=== PATIENT | female | born 1950 | race Caucasian/White ===

== ENCOUNTER 2021-12-07 12:50 | Outpatient (CLI) | payer MEDICARE, SELFPAY ==
--- NOTE | 2021-12-07 13:00 | CRLHL7_ITS ---
For Patients: As a result of the Century Cures Act, medical imaging exams and procedure reports are released immediately into your electronic medical record. You may view this report before your referring provider. If you have questions, please contact your health care provider. DXA BONE MINERAL DENSITY STUDY, 12/07/2021 Reason for exam: Screening. Current height (inches): 61.5 Weight (lbs.): 121.0 Menopause age: 52 Ethnicity: White 1. Have you had a previous hip or vertebral fracture? No. 2. Have you had any fractures during your adult life which did not result from significant trauma (e.g., auto accident)? No. 3. Did either of your parents have a hip fracture? No. 4. Do you smoke? No. 5. Have you ever taken Glucocorticoids? No. 6. Do you have rheumatoid arthritis? No. 7. Do you have secondary osteoporosis? No. 8. Do you drink 3 or more alcoholic drinks per day? No. 9. Are you being treated for osteoporosis? No. 10. Have you ever taken any of the following medications: Actonel, Evista, Fosamax, Miacalcin, Reclast, Boniva, Forteo, HRT (i.e., estrogen/hormone therapy), Protelos, Prolia, Vitamin D, Calcium, other ??? please specify. ANSWER: Yes; Vitamin D and calcium. 11. Do you have any of the following medical conditions: Anorexia or bulimia, asthma or emphysema, end stage renal disease, hyperparathyroidism, any seizure disorders, cancer, inflammatory bowel diseases, hysterectomy, other ??? please specify. ANSWER: No. 12. What was your maximum height (inches)? 62. 13. Do you perform weight bearing exercise regularly? Yes. 14. Do you regularly consume dairy products? Yes. 15. Do you drink caffeinated beverages? Yes. 16. At what age did your period start? 14. 17. Are you premenopausal? No. 18. How many full-term pregnancies have you had? 4. 19. Have you ever missed your period for more than 6 months in a row (not including or menopause)? No. TECHNIQUE: Bone mineral density study was performed using the T-VIPS. FINDINGS: The results of the study expressed as bone mineral density (BMD) are as follows: Lumbar Spine L1 to L3: BMD: 0.910 g/cm2. T-score: -1.0. Z-score: 1.1. Neck Left: BMD: 0.795 g/cm2. T-score: -0.5. Z-score: 1.3. Right: BMD: 0.887 g/cm2. T-score: 0.3. Z-score: 2.1. Total Left: BMD: 1.026 g/cm2. T-score: 0.7. Z-score: 2.2. Right: BMD: 1.090 g/cm2. T-score: 1.2. Z-score: 2.7. IMPRESSION: Normal bone density. Scoliosis. COMPARISON: Compared with scan of 02/21/2015, the bone mineral density has decreased by 6.1 percent at the spine and decreased by 5.0 percent at the hip. *Comparison exams done prior to 08/2019 were performed on different unit, [employer]. GWEN WIN M.D. Diagnostic/Breast Radiologist [email or web address] Transcribed: 6:[address]/Dictated by: Gwen Win MD @ 12/07/2021 2:36:00 PM (Electronically Signed)
--- OUTSIDE RECORDS SUMMARY | 2021-12-07 13:34 | XMS_ITS | Clinical Summary ---
:1950 Author Organization [facility] [place] [address] Care Team Providers Name Role Phone Veronica Krause MD Primary Care Provider [phone] Allergies No known active allergies Medications Medication Sig Dispensed Refills Start Date End Date Status MULTIVITAMIN TAB take 1 tablet by 0 02/12/2007 Active oral route once daily with food traZODone (DESYREL) 50 at bedtime if 0 04/04/2021 Active mg tablet needed. simvastatin (ZOCOR) 20 Take 20 mg by 0 04/04/2021 Active mg tablet mouth at bedtime. Active Problems Problem Noted Date Ascending aortic aneurysm 05/01/2019 Insomnia, unspecified 03/26/2009 Mixed hyperlipidemia 06/29/2008 [facility] 03[facility]12[facility] Overview: Dexa normal 2006, due 2011 Colonoscopy normal 2006, due 2016 Symptomatic menopausal or female climacteric states Immunizations Name Administration Dates Next Due Td (Age >=7 Years) 08/18/1998 Tdap 03/15/2008 Family History Medical History Relation Name Comments Heart Disease Father aneurysm, cerebr al Heart Disease Mother age 76 Hypertension Mother Hyperlipidemia Sister Thyroid Disease Sister Relation Name Status Comments Father Mother (Age 76) [place] Sister Social History Tobacco Use Types Packs/Day Years Used Date Never Smoker Alcohol Use Standard Drinks/Week Comments Yes 3.3 (1 standard drink = 0.6 oz pure coup le glasses of wine on the alcohol) weekends Sex Assigned at Date Recorded Not on file Obstetrics History Para Term AB IAB SAB Ectopic Multiple Living Live Births 4 4 4 4 Date Outcome GA Total Labor/2nd/3rd Weight Sex Delivery Anes PTL Ashleigh A 1 A5 Name Clin Labor Term Term Term Term Last Filed Vital Signs Vital Sign Reading Time Taken Comments Blood Pressure 104/60 05/19/2021 8:55 AM CDT Pulse 68 05/19/2021 8:55 AM CDT Temperature 36.4 ??C (97.6 ??F) 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 Respiratory Rate 16 05/18/2016 11:08 AM CDT Oxygen Saturation - - Inhaled Oxygen Concentration - - Weight 56.7 kg (125 lb) 05/19/2021 8:55 AM CDT Height 157.5 cm (5' 2.01) 05/18/2016 11:08 AM CDT Body Mass Index 22.86 05/18/2016 11:08 AM CDT Plan of Treatment Health Maintenance Due Date Last Done Comments Depression screening for age 12+ 1963 Hepatitis C screening for age 0810/04/1969 18-79 Zoster (shingles) series for age 0810/04/2001 50+ (1 of 2) Mammogram for age 45-75 03/25/2010 03/25/2009, 03/12/2008, 02/12/2007 Lipids for age 45-75 03/25/2014 03/25/2009, 07/29/2008, 03/12/2008, Additional history exists DEXA/DXA scan for age 65+ 10/04/2016 02/18/2007 Medicare Wellness for age 65+ 10/04/2016 Pneumococcal series for age 65+ (1 10/04/2016 - PCV) Colonoscopy through age 75 10/11/2016 10/11/2006 BMI (ht and wt on same day) for 05/18/2017 05/18/2016 age 18+ Tetanus booster 03/15/2018 03/15/2008, 08/18/1998 COVID-19 vaccine series (4 - 05/10/2021 01/10/2021, 021, Booster for Moderna series) 04/15/2020 Influenza for age 65+ 11/02/2021 Tdap Completed 03/15/2008 Results Not on filefrom Last 3 Months Insurance Payer Benefit Plan / Subscriber ID Effective Dates Phone Addre ss Type Group [facility] MR [id number] 2019-Present [address] [address] [place] [address] Santana,Gerda Aniya Retail Self [phone] ([address]) [place] [id number] Care Teams Business Relationship Manager Relationship Specialty Start Date End Date Veronica Krause MD PCP - General Family Practice 04/19/161999 [place] [id number]
== END 2021-12-07 12:51 | disposition home or self-care (01) ==
LOC: RAD 12:52
PROVIDERS: PCP Family Medicine; Visit Provider Family Medicine
DX: Z13.820 Encounter for screening for osteoporosis (principal); Z78.0 Asymptomatic menopausal state
CPT/HCPCS: 77080

== ENCOUNTER 2021-12-29 16:00 | Outpatient (RCR) | payer MEDICARE, SELFPAY ==
--- NOTE | 2021-10-27 08:37 | PT.OPEX ---
PT [facility] PT [facility] Eval Start: 10/27/21 07:31 Freq: Status: Active Protocol: Document 10/27/21 07:31 MANUEL (Rec: 10/27/21 08:34 MANUEL [id number]) E-signed By Cordell Houston PT Physical Therapy Outpatient Evaluation Insurance Information Insurance Name Medicare B Medical Diagnosis Left Shoulder pain Treating Diagnosis Decreased left shoulder ROM Mild scapular and cuff weakness Referring MD Krause Subjective Subjective Pt. reports having chronic left shoulder stiffness and mild pain symptoms without injury noted. She has tried to self treat with strengthening which has helped some but she continues to have pain and dysfunction. She is right handed. She has trouble reaching out and back like when putting her hand into a coat etc. She has good overall health and is very active overall. History of right knee surgery last year. Pain Comments minimal Date of Last Physician Visit 08/23/21 Current Work Status Retired Objective Range of Motion 60 deg of left shoulder ER at 90 deg of abduction versus 85 degrees on right Strength mild cuff weakness Palpation left infraspinatus TP and pain Other/Pertinent Objective mild impingement left shoulder Assessment Assessment/Impression Objectively, pt. demonstrates; mild limitations in left shoulder end range flexion with moderate limitation in end range ER compared to right with pain; pain and TP noted in right infraspinatus; tightness in pectorals; mild pain with resisted abduction and flexion; mild impingement signs left shoulder; mild weakness left cuff; and mild capsular tightness left GHJ. She would benefit from skilled therapy working restoring full left shoulder ROM and cuff strength. Primary Functional Limitations reaching Plan of Care Rehabilitation Potential Excellent Physical Therapy Goals 1. Pt. will be indep. with HEP for self maintenance in 12 weeks. 2. Pt. will demonstrate improved left shoulder ROM to normal levels in 12 weeks. 3. Pt. will be able to reach out and put coat/shirt on without difficulty in 12 weeks . Coordination/Communication With Referral Source Treatment Plan/Direct Interventions Joint Mobilization,Manual Therapy,Self-Care/Home Management,Therapeutic Activities,Therapeutic Exercises Frequency/Duration 2-3 visits over 12 weeks. Patient Will Be Discharged From Therapy Independent w/HEP, Independently Progressing Evaluation Billing Complexity Low Certification Information Initial Certification Date 10/27/21 Ending Certification Date 01/19/22 Provider Signature Shows Agreement With POC & Medical Necessity Physician Comment/Change Comment Physician NPI Number #
== END 2021-12-29 16:53 | disposition home or self-care (01) ==
PROVIDERS: PCP Family Medicine; Visit Provider Family Medicine
DX: M25.512 Pain in left shoulder (principal); Z51.89 Encounter for other specified aftercare
CPT/HCPCS: 97110; 97140; 97161

== ENCOUNTER 2022-09-20 07:28 | Outpatient (CLI) | payer MEDICARE, SELFPAY | END 2022-09-20 07:29 | disposition home or self-care (01) | LOC: NFLDREF 09-21 14:10 | PROVIDERS: PCP Family Medicine; Referring Provider Family Medicine; Visit Provider Family Medicine | DX: Z00.00 Encounter for general adult medical examination without abnormal findings (principal); E78.5 Hyperlipidemia, unspecified; Z13.9 Encounter for screening, unspecified | CPT/HCPCS: 80053; 80061 ==

== ENCOUNTER 2022-10-29 21:31 | Outpatient (CLI) | payer MEDICARE, SELFPAY ==
--- NOTE | 2022-10-29 11:30 | CRLHL7_ITS ---
For Patients: As a result of the Century Cures Act, medical imaging exams and procedure reports are released immediately into your electronic medical record. You may view this report before your referring provider. If you have questions, please contact your health care provider. BILATERAL SCREENING MAMMOGRAM WITH COMPUTER-AIDED DETECTION AND TOMOSYNTHESIS TECHNIQUE: CC and MLO views were obtained. These mammographic images have been obtained using full-field digital technique. These mammographic images were interpreted with the benefit of computer-aided detection. Breast Tomosynthesis was used in this interpretation. COMPARISON FILM: 08/28/21, 07/22/20, 05/01/19. FINDINGS: The breasts are heterogeneously dense, which may obscure small masses IMPRESSION: There is no radiographic evidence for malignancy. ASSESSMENT: BI-RADS Category 1: Negative RECOMMENDATION: Routine screening mammogram in 1 year. A lay language report of this examination will be provided to the patient. Sid Mayorga M.D. Diagnostic Radiologist [email or web address] Transcribed: 2:44 pm DW/Dictated by: Sid Mayorga MD @ 10/30/2022 12:57:00 PM (Electronically Signed)
== END 2022-10-29 21:32 | disposition home or self-care (01) ==
LOC: MAMMO 21:34
PROVIDERS: PCP Family Medicine; Visit Provider Family Medicine
DX: Z12.31 Encounter for screening mammogram for malignant neoplasm of breast (principal); R92.2 Inconclusive mammogram
CPT/HCPCS: 77063; 77067

== ENCOUNTER 2023-06-14 09:43 | Outpatient (CLI) | payer MEDICARE, SELFPAY ==
--- OUTSIDE RECORDS SUMMARY | 2023-06-14 09:48 | XMS_ITS | Clinical Summary ---
Author Name Unknown Organization [facility] Address [place], [place] [address] Care Team Providers Care Embroiderer Hand Name Role Phone Veronica Krause MD Primary Care Provider + Allergies No known active allergies Medications Medication Sig Dispensed Refills Start Date End Date Status MULTIVITAMIN TAB take 1 tablet by oral route once daily with food 0 02/12/2007 Active traZODone (DESYREL) 50 mg tablet at bedtime if needed. 04/04/2021 Active simvastatin (ZOCOR) 20 mg tablet Take 20 mg by mouth at bedtime. 04/04/2021 Active Active Problems Problem Noted Date Diagnosed Date Ascending aortic aneurysm 05/01/2019 Insomnia, unspecified 03/26/2009 Mixed hyperlipidemia 06/29/2008 Routine general medical exam ination at a health care facility 03/12/2008 Overview: Dexa normal 2006, due 2011 Colonoscopy normal 2006, due 2016 Symptomatic menopausal or female climacteric sta carol 02/12/2007 Immunizations Name Administration Dates Next Due Td (Age >=7 Years) 08/18/1998 Tdap 03/15/2008 Family History Medical History Relation Name Comments Heart Disease Father aneurysm, cere bral Heart Disease Mother age 76 Hypertension Mother Hyperlipidemia Sister Thyroid Disease Sister Relation Name Status Comments Father Mother (Age 76) [place] Sister Social History Tobacco Use Types Packs/Day Years Used Date Smoking Tobacco: Never Alcohol Use Standard Drinks/Week Comments Yes 3.3 (1 standard drin k = 0.6 oz pure alcohol) couple glasses of wine on the weekends Social Connections Answer Date Recorded Frequency of Communication with Friends and Fami ly Not on file 05/19/2021 Financial Resource Strain Answer Date R ecorded Difficulty of Paying Living Expenses Not on file 03/01/2021 Difficulty of Paying Living Expenses Not on file 03/01/2021 Sex and Gender Information Value Date Recorded Sex Assigned at Not on file Gender Identity Not on file Sexual Orientation Not on file Obstetrics History Para Term AB IAB SAB Ectopic Multiple Livin g Live Births 4 4 4 4 Date Outcome GA Total Labor Labor/2nd/3rd Weight Sex Delivery Anes PTL Ashleigh A1 A5 Name Cl in Term Term Term Term Last Filed Vital Signs Vital Sign Reading Time Taken Comments Blood Pressure 104/60 05/19/2021 8:55 AM CDT Pulse 68 05/19/2021 8:55 AM CDT Temperature 36.4 ??C (97.6 ??F) 02/12/2007 8:50 AM CS T Respiratory Rate 16 05/18/2016 11:08 AM CDT Oxygen Saturation - - Inhaled Oxygen Concentration - - Weight 56.7 kg (125 lb) 05/19/2021 8:55 AM CDT Height 157.5 cm (5' 2.01) 05/18/2016 11:08 AM C DT Body Mass Index 22.86 05/18/2016 11:08 AM CDT Plan of Treatment Upcoming Encounters Date Type Department Care Team (Late st Contact Info) Description 06/14/2023 10:00 AM CDT Ancillary Procedure [facility] & [address] [address] Health Maintenance Due Date Last Done Comments Depression screening for age 12+ 1963 Hepatitis C screening for ag e 18-79 10/04/1969 Zoster (shingles) series for age 50+ (1 of 2) 10/04/2001 Mammogram for age 45-75 03/25/2010 03/25/19 10, 03/12/2008, 02/12/2007 Lipids for age 45-75 03/25/2014 03/25/2009, 07/29/2008, 03/12/2008, Additional history exists DEXA/DXA scan for age 65+ 10/04/2016 02/18/2007 Medicare Wellness for age 65+ 10/04/2016 Pneumococcal series for age 65+ (1 of 1 - PCV) 10/04/2016 Colonoscopy through age 75 10/11/2016 10/11/2006 BMI (ht and wt on same day) for age 18+ 05/18/2017 05/18/2016 Tetanus booster 03/15/2018 03/15/2008, 08/18/1998 COVID-19 vaccine series ( season) 2022 01/10/2021, 05/13/2020, 04/15/2020 Influenza for age 65+ 11/03/2023 Tdap Completed 03/15/2008 Procedures Procedure Name Priority Date/Time Associated Diagnosis Comments LIPID PANEL W REFLEX MEASURED LDL Routine 03/25/2009 10:08 AM CREDIT PORTFOLIO ADVISOR Mixed Hyperlipidemia XR MAMMO BILAT SCREEN FFDM (IA) Routine 03/25/2009 9:55 AM CREDIT PORTFOLIO ADVISOR Other Screening Mammogram XR DXA BONE DENSITY 2 SITES AXIAL Routine 02/18/2007 3:46 PM CREDIT PORTFOLIO ADVISOR Screening Osteoporosis from Last 3 Months or Most Recently Relevant to Health Maintenance Results * (ABNORMAL) LIPID PANEL W REFLEX MEASURED LDL (03/25/2009 10:08 AM CREDIT PORTFOLIO ADVISOR) CHOLESTEROL,TOTAL 249(H) 110 - 199 mg/dL [facility] TRIGLYCERIDES 60 <150 mg/dL [facility] HDL CHOLESTEROL 73 >40 mg/dL [facility] CHOL/HDL RATIO 3.41 <4.51 [facility] LDL CHOLESTEROL 164(H) <131 mg/dL [facility] PATIENT STATUS Fasting [facility] Blood specimen (specimen) BLOOD SPECIMEN / Unknown 03/25/2009 10:08 AM CREDIT PORTFOLIO ADVISOR 03/25/2009 10:04 AM CREDIT PORTFOLIO ADVISOR Sudha Knox CHEMISTRY [facility] [address] [place] [address] * XR MAMMO BILAT SCREEN FFDM (03/25/2009 9:55 AM CREDIT PORTFOLIO ADVISOR) MAMMOGRAM ACR 2 Benign Finding Anatomical Region Laterality Modality BREASTS, Breast Left, Breast Right Bilateral Mammography 03/25/2009 9:55 AM CREDIT PORTFOLIO ADVISOR Narrative 03/25/2009 3:14 PM CREDIT PORTFOLIO ADVISOR Benign findings noted on mammogram. ??For complete description of the mammographic examination, please reference scanned document within [employer]. ?? We are mailing a results letter to the patient. ACR 2 Benign Finding Procedure Note Huang Rodríguez DO - 03/25/2009 Benign findings noted on mammogram. For complete description of themammographic examination, please reference scanned document [facility]. We are mailing a results letter to the patient. ACR 2 Benign Finding Sudha Knox MAMMO * XR DEXA BONE DENSITY 2 SITES (02/18/2007 3:46 PM CREDIT PORTFOLIO ADVISOR) Anatomical Region Laterality Modality Spine, HIPS, HIPL, HIPR Other 02/18/2007 3:46 PM CREDIT PORTFOLIO ADVISOR Narrative 02/21/2007 2:53 PM CREDIT PORTFOLIO ADVISOR Please see scanned document for results of this study. Procedure Note Sal Bergeron MD - 02/27/2007 Please see scanned document for results of this study. Sudha Knox DEXA from Last 3 Months or Most Recently Relevant to Health Maintenance Care Teams Embroiderer Hand Relationship Specialty Start Date End Date Veronica Krause MD [address] [facility] [place] [id number] PCP - General Family Practice 04/19/16
== END 2023-06-14 09:44 | disposition home or self-care (01) ==
PROVIDERS: PCP Family Medicine; Visit Provider Internal Medicine Cardiovascular Disease
DX: I77.810 Thoracic aortic ectasia (principal); I35.1 Nonrheumatic aortic (valve) insufficiency; I34.0 Nonrheumatic mitral (valve) insufficiency
CPT/HCPCS: 93306

== ENCOUNTER 2023-06-15 08:38 | Outpatient (CLI) | payer MEDICARE, OTHER, SELFPAY ==
--- OUTSIDE RECORDS SUMMARY | 2023-07-04 09:11 | XMS_ITS | Clinical Summary ---
Author Name Unknown Organization [facility] Address [place], [place] [address] Care Team Providers Care Digital Content Producer Name Role Phone Veronica Krause MD Primary [...] menopausal or female climacteric sta carol 02/12/2007 Encounters Date Type Department Care Team Description 06/14/2023 10:00 AM CDT Ancillary Procedure [facility] [address] [facility] [place] [address] 06/14/2023 Telephone [address] [place] [address] Jt Miller MD Results (echo) 06/14/2023 Travel from Last 3 Months Immunizations Name Administration Dates Next Due Td (Age >=7 Years) 08/18/1998 Tdap 03/15/2008 Family History Medical History Relation Name Comments Heart Disease Father aneurysm, cere bral Heart Disease Mother age 76 Hypertension Mother Hyperlipidemia Sister Thyroid Disease Sister Relation Name Status Comments Father Mother (Age 76) [place] Sister Social History Tobacco Use Types Packs/Day [...] Care Team (Late st Contact Info) Description 07/04/2023 1:00 PM CDT Office Visit [facility] [address] [place], [place] [id number] Hector Tavera MD [address] [place] [address] Arrived Health Maintenance Due Date Last Done Comments [...] 05/18/2017 05/18/2016 Tetanus booster 03/15/2018 03/15/2008, 08/18/1998 Influenza for age 65+ 11/03/2023 Tdap Completed 03/15/2008 COVID-19 vaccine series Completed 01/10/20 23, 11/13/2021, 08/23/2021, Additional history exists Procedures Procedure Name Priority Date/Time Associated Diagnosis Comments ECHO TTE COMPLETE WO CONTRAST Routine 06/14/2023 10:46 AM CDT Thoracic aortic ectasia (HC) LIPID PANEL W REFLEX MEASURED LDL Routine 03/25/2009 10:08 AM COCONUT COOKER Mixed Hyperlipidemia XR MAMMO BILAT SCREEN FFDM (IA) Routine 03/25/2009 9:55 AM COCONUT COOKER Other Screening Mammogram XR DXA BONE DENSITY 2 SITES AXIAL Routine 02/18/2007 3:46 PM COCONUT COOKER Screening Osteoporosis from Last 3 Months or Most Recently Relevant to Health Maintenance Results * ECHO TTE COMPLETE WO CONTRAST (06/14/2023 10:46 AM CDT) AORTIC VALVE MEAN PG 3 mmHg EJECTION FRACTION 63 % PEAK TR VELOCITY 2.5 m/s LVEDD 4.4 cm Anatomical Region Laterality Modality Ultrasound 06/14/2023 10:1 9 AM CDT Narrative 06/14/2023 1:01 PM CDT ECHOCARDIOGRAM GERDA SANTANA ?Accession#: ?? [id number] : ?1950 72 years Study Date: ?? 06/14/2023 10:19:38 AM Gender: F ? BP: ? 101/54 mmHg Height: 157.00 cm ? BSA: ?1.57 m? ? ? Weight: 57.00 kg ?Tech: ? MSR ?Referring MD: JT MILLER Site: ? [facility] Reading Location: Mobile OP Patient Location: Outpatient. Procedure: 2D, Color Doppler and Spectral Doppler. Indication for study: Thoracic aortic ectasia Cardiac Rhythm: Regular.Study quality: Fair. Final Impressions: 1. Normal left ventricular size, normal wall thickness, normal global systolic function, calculated EF of 63 %. 2. Right ventricular cavity size is normal, global systolic RV function is normal. 3. Normal left atrium size. 4. The aortic valve is normal, no stenosis and trivial regurgitation. 5. The mitral valve is normal, trace mitral regurgitation. 6. Tricuspid valve is normal. 7. The ascending aorta is dilated with a maximal diameter of 4.1 cm. 8. No pericardial effusion. Chamber Sizes and Function Normal left ventricular size, normal wall thickness, normal global systolic function, calculated EF of 63 %. Left atrial size is normal. Right ventricular cavity size is normal, global systolic RV function is normal. RV wall thickness is normal. The right atrium is normal. The pulmonary artery is of normal size and origin. The sinus of Valsalva is normal sized. The ascending aorta is dilated. Valves, RV Pressures and Diastolic Function The aortic valve is normal in structure, no stenosis and trivial regurgitation. The mitral valve is normal in structure, trace mitral regurgitation. Normal diastolic function. The tricuspid valve is normal in structure. Tricuspid regurgitation is trace regurgitation. The tricuspid regurgitant velocity is 2.5 m/s, the estimated right ventricular systolic pressure is 25 mmHg plus right atrial pressure. There is borderline increased estimated pulmonary pressure by tricuspid regurgitation velocity and right atrial pressure. The pulmonic valve is normal. Trace pulmonary regurgitation. Masses, Effusion, Shunts There is no pericardial effusion. The inferior vena cava is normal sized, respiratory size variation greater than 50%. Interatrial septum is not well visualized. MEASUREMENTS AND CALCULATIONS 2-D Measurements and LV Function: LVID (d) 4.4 cm Planimetered EF 63 % LVID (s) 2.8 cm LV FS% (2D) ? 37 % IVS (d) ??0.9 cm LVOT diameter ?? 2.0 cm LVPW (d) 0.9 cm HR ?57 bpm Ao Sinus 3.1 cm LA Vol index ?32 ml/m2 Asc Ao ?? 4.1 cm RV Max 4C (d) ?? 4.0 cm Diastology: Mitral ?Tissue Doppler E Peak 0.8 m/s ??e', Septum ? 0.08 m/s A Peak 0.4 m/s ??e', Lateral ?0.10 m/s E/A ?1.9 ?E/e' Average ?? 8.84 DT ? 121 msec Aortic Valve: Vmax ? 1.2 m/s ??DWAINE (V) ?? 2.78 cm? AI P 1/2 465 msec VTI ?0.30 m ?? DWAINE (I) ?? 2.39 cm? ? ? LVOT V max 1.1 m/s ??Max PG ?6 mmHg LVOT VTI ?? 0.24 m ?? Mean PG ?? 3 mmHg SV ? 71 ml ?Dim Index 0.80 SV index ?? 45 ml/m? ? ? CO ?4.1 l/min ?CI ?2.6 l/min/m? ? ? Mitral Valve: MVA ?6.3 cm? ? ? MV P 1/2 35 msec Tricuspid Valve and estimated PA pressures: TR Vmax 2.5 m/s TAPSE 2.5 cm TR maxG 25 mmHg Pulmonic Valve: PIEDV 1.0 m/s . This study was interpreted by an [facility] accredited facility. CC: HIM (med records) [facility]. ??Final ?? Procedure Note Sonia Chery, [facility] - 06/14/2023 ECHOCARDIOGRAM GERDA SANTANA : 1950 72 years Study Date: 06/14/2023 10:19:38 AM Gender: F BP: 101/54 mmHg Height: 157.00 cm BSA: 1.57 m? ? ? Weight: 57.00 kg Tech: MSR Referring MD: JT MILLER Site: [facility] Reading Location: Mobile OP Patient Location: Outpatient. Procedure: 2D, Color Doppler and Spectral Doppler. Indication for study: Thoracic aortic ectasia Cardiac Rhythm: Regular.Study quality: Fair. Final Impressions: 1. Normal left ventricular size, normal wall thickness, normal globalsystolic function, calculated EF of 63 %. 2. Right ventricular cavity size is normal, global systolic RV functionis normal. 3. Normal left atrium size. 4. The aortic valve is normal, no stenosis and trivial regurgitation. 5. The mitral valve is normal, trace mitral regurgitation. 6. Tricuspid valve is normal. 7. The ascending aorta is dilated with a maximal diameter of 4.1 cm. 8. No pericardial effusion. Chamber Sizes and Function Normal left ventricular size, normal wall thickness, normal globalsystolic function, calculated EF of 63 %. Left atrial size is normal.Right ventricular cavity size is normal, global systolic RV function isnormal. RV wall thickness is normal. The right atrium is normal. Thepulmonary artery is of normal size and origin. The sinus of Valsalva isnormal sized. The ascending aorta is dilated. Valves, RV Pressures and Diastolic Function The aortic valve is normal in structure, no stenosis and trivialregurgitation. The mitral valve is normal in structure, trace mitralregurgitation. Normal diastolic function. The tricuspid valve is normal instructure. Tricuspid regurgitation is trace regurgitation. The tricuspidregurgitant velocity is 2.5 m/s, the estimated right ventricular systolicpressure is 25 mmHg plus right atrial pressure. There is borderlineincreased estimated pulmonary pressure by tricuspid regurgitation velocityand right atrial pressure. The pulmonic valve is normal. Trace pulmonaryregurgitation. Masses, Effusion, Shunts There is no pericardial effusion. The inferior vena cava is normal sized,respiratory size variation greater than 50%. Interatrial septum is notwell visualized. MEASUREMENTS AND CALCULATIONS 2-D Measurements and LV Function: LVID (d) 4.4 cm Planimetered EF 63 % LVID (s) 2.8 cm LV FS% (2D) 37 % IVS (d) 0.9 cm LVOT diameter 2.0 cm LVPW (d) 0.9 cm HR 57 bpm Ao Sinus 3.1 cm LA Vol index 32 ml/m2 Asc Ao 4.1 cm RV Max 4C (d) 4.0 cm Diastology: Mitral Tissue Doppler E Peak 0.8 m/s e', Septum 0.08 m/s A Peak 0.4 m/s e', Lateral 0.10 m/s E/A 1.9 E/e' Average 8.84 DT 121 msec Aortic Valve: Vmax 1.2 m/s DWAINE (V) 2.78 cm? ? ? AI P 1/2 465 msec VTI 0.30 m DWAINE (I) 2.39 cm? ? ? LVOT V max 1.1 m/s Max PG 6 mmHg LVOT VTI 0.24 m Mean PG 3 mmHg SV 71 ml Dim Index 0.80 SV index 45 ml/m? ? ? CO 4.1 l/min CI 2.6 l/min/m? ? ? Mitral Valve: MVA 6.3 cm? ? ? MV P 1/2 35 msec Tricuspid Valve and estimated PA pressures: TR Vmax 2.5 m/s TAPSE 2.5 cm TR maxG 25 mmHg Pulmonic Valve: PIEDV 1.0 m/s . This study was interpreted by an [facility] accredited facility. CC: HIM (med records) [facility]. Final Jt Miller MD ECHO ORD * (ABNORMAL) LIPID PANEL W REFLEX MEASURED LDL (03/25/2009 10:08 AM COCONUT COOKER) CHOLESTEROL,TOTAL 249(H) 110 - 199 mg/dL [facility] TRIGLYCERIDES 60 <150 mg/dL [facility] HDL CHOLESTEROL 73 >40 mg/dL [facility] CHOL/HDL RATIO 3.41 <4.51 [facility] LDL CHOLESTEROL 164(H) <131 mg/dL [facility] PATIENT STATUS Fasting [facility] Blood specimen (specimen) BLOOD SPECIMEN / Unknown 03/25/2009 10:08 AM COCONUT COOKER 03/25/2009 10:04 AM COCONUT COOKER Sudha Knox CHEMISTRY Performing Organization Address City/State/[facility] Co de Phone Number [facility] [address] [place] [address] * XR MAMMO BILAT SCREEN FFDM (03/25/2009 9:55 AM COCONUT COOKER) MAMMOGRAM ACR 2 Benign Finding Anatomical Region Laterality Modality BREASTS, Breast Left, Breast Right Bilateral Mammography 03/25/2009 9:55 AM COCONUT COOKER Narrative 03/25/2009 3:14 PM COCONUT COOKER Benign findings noted on mammogram. ??For complete description of the mammographic examination, please reference scanned document within [facility]. ?? We are mailing a results letter to the patient. ACR 2 Benign Finding Procedure Note Huang Rodríguze DO - 03/25/2009 Benign findings noted on mammogram. For complete description of themammographic examination, please reference scanned document [facility]. We are mailing a results letter to the patient. ACR 2 Benign Finding Sudha Knox MAMMO * XR DEXA BONE DENSITY 2 SITES (02/18/2007 3:46 PM COCONUT COOKER) Anatomical Region Laterality Modality Spine, HIPS, HIPL, HIPR Other 02/18/2007 3:46 PM COCONUT COOKER Narrative 02/21/2007 2:53 PM COCONUT COOKER Please see scanned document for results of this study. Procedure Note Sal Bergeron MD - 02/27/2007 Please see scanned document for results of this study. Sudha Knox DEXA from Last 3 Months or Most Recently Relevant to Health Maintenance Care Teams Digital Content Producer Relationship Specialty Start Date End Date Veronica Krause MD [address] [place] [phone] PCP - General Family Practice 04/19/16
== END 2023-06-15 08:39 | disposition home or self-care (01) ==
LOC: NFLDREF 07-04 09:09
PROVIDERS: PCP Family Medicine; Referring Provider Family Medicine; Visit Provider Family Medicine
DX: R35.0 Frequency of micturition (principal); N39.0 Urinary tract infection, site not specified
CPT/HCPCS: 87086; 87186

== ENCOUNTER 2023-10-25 09:12 | Outpatient (CLI) | payer MEDICARE, SELFPAY ==
--- OUTSIDE RECORDS SUMMARY | 2023-10-29 22:20 | XMS_ITS | Clinical Summary ---
Author Organization [facility] Address [place], [place] [address] Care Team Providers Care Keg Filler Name Role Phone Veronica Krause MD Primary [...] Name Status Comments Father Mother (Age 76) [place] Sister Social History Tobacco Use Types Packs/Day Years Used Date Smoking Tobacco: Never Alcohol Use Standard Drinks/Week Comments Yes 3.3 (1 standard drin k = 0.6 oz pure alcohol) couple glasses of wine on the weekends Social Connections Answer Date Recorded Frequency of Communication with Friends and Fami ly Not on file 07/04/2023 Financial Resource Strain Answer Date R ecorded [...] Outcome GA Total Labor Labor/2nd/3rd Weight Sex Type Anes PTL Ashleigh A1 A5 Name Clin Term Term Term Term Last Filed Vital [...] booster 03/15/2018 03/15/2008, 08/18/1998 COVID-19 vaccine series (2022-) 05/10/2023 01/09/2023, 11/13/2021, 08/23/2021, Additional history exists Influenza for age 65+ 11/03/2023 Tdap Completed 03/15/2008 Procedures Procedure Name Priority Date/Time Associated Diagnosis Comments LIPID PANEL W REFLEX MEASURED LDL Routine 03/25/2009 10:08 AM HEALTH INFORMATION MANAGER Mixed Hyperlipidemia XR MAMMO BILAT SCREEN FFDM (IA) Routine 03/25/2009 9:55 AM HEALTH INFORMATION MANAGER Other Screening Mammogram XR DXA BONE DENSITY 2 SITES AXIAL Routine 02/18/2007 3:46 PM HEALTH INFORMATION MANAGER Screening Osteoporosis from Last 3 Months or Most Recently Relevant to Health Maintenance Results * (ABNORMAL) LIPID PANEL W REFLEX MEASURED LDL (03/25/2009 10:08 AM HEALTH INFORMATION MANAGER) CHOLESTEROL,TOTAL 249(H) 110 - 199 mg/dL [facility] TRIGLYCERIDES 60 <150 mg/dL [facility] HDL CHOLESTEROL 73 >40 mg/dL [facility] CHOL/HDL RATIO 3.41 <4.51 [facility] LDL CHOLESTEROL 164(H) <131 mg/dL [facility] PATIENT STATUS Fasting [facility] Blood specimen (specimen) BLOOD SPECIMEN / Unknown 03/25/2009 10:08 AM HEALTH INFORMATION MANAGER 03/25/2009 10:04 AM HEALTH INFORMATION MANAGER Sudha Knox CHEMISTRY [facility] [address] [place] [id number] * XR MAMMO BILAT SCREEN FFDM (03/25/2009 9:55 AM HEALTH INFORMATION MANAGER) MAMMOGRAM ACR 2 Benign Finding Anatomical Region Laterality Modality BREASTS, Breast Left, Breast Right Bilateral Mammography 03/25/2009 9:55 AM HEALTH INFORMATION MANAGER Narrative 03/25/2009 3:14 PM HEALTH INFORMATION MANAGER Benign findings noted on mammogram. ??For complete [...] BONE DENSITY 2 SITES (02/18/2007 3:46 PM HEALTH INFORMATION MANAGER) Anatomical Region Laterality Modality Spine, HIPS, HIPL, HIPR Other 02/18/2007 3:46 PM HEALTH INFORMATION MANAGER Narrative 02/21/2007 2:53 PM HEALTH INFORMATION MANAGER Please see scanned document for results of this study. Procedure Note Sal Bergeron MD - 02/27/2007 Please see scanned document for results of this study. Sudha Knox DEXA from Last 3 Months or Most Recently Relevant to Health Maintenance Care Teams Keg Filler Relationship Specialty Start Date End Date Veronica Krause MD [address] [phone] PCP - General Family Practice 04/19/16
== END 2023-10-25 09:13 | disposition home or self-care (01) ==
LOC: NFLDREF 10-29 22:19
PROVIDERS: PCP Family Medicine; Referring Provider Family Medicine; Visit Provider Family Medicine
DX: E78.5 Hyperlipidemia, unspecified (principal); R53.83 Other fatigue
CPT/HCPCS: 80053; 80061

== ENCOUNTER 2024-01-13 11:08 | Outpatient (CLI) | payer MEDICARE, SELFPAY ==
--- OUTSIDE RECORDS SUMMARY | 2024-01-13 11:11 | XMS_ITS | Clinical Summary ---
Author Organization [employer] [facility] Address [place], [place] [address] Care Team Providers Care Electrical Intern Name Role Phone Veronica Krause MD Primary [...] ination at a health care facility 03/12/2008 Overview (03/12/2008): Dexa normal 2006, due 2011 Colonoscopy normal [...] Name Status Comments Father Mother (Age 76) [place] Sister Social History Tobacco Use Types Packs/Day [...] 03/15/2008, 08/18/1998 COVID-19 vaccine series ( season) 2023 01/09/2023, 11/13/2021, 08/23/2021, Additional history exists Influenza for age 65+ 11/03/2023 Tdap Completed 03/15/2008 Procedures Procedure Name Priority Date/Time Associated Diagnosis Comments LIPID PANEL W REFLEX MEASURED LDL Routine 03/25/2009 10:08 AM MANAGER INTERMEDIATE Mixed Hyperlipidemia XR MAMMO BILAT SCREEN FFDM (IA) Routine 03/25/2009 9:55 AM MANAGER INTERMEDIATE Other Screening Mammogram XR DXA BONE DENSITY 2 SITES AXIAL Routine 02/18/2007 3:46 PM MANAGER INTERMEDIATE Screening Osteoporosis from Last 3 Months or Most Recently Relevant to Health Maintenance Results * (ABNORMAL) LIPID PANEL W REFLEX MEASURED LDL (03/25/2009 10:08 AM MANAGER INTERMEDIATE) CHOLESTEROL,TOTAL 249(H) 110 - 199 mg/dL [facility] TRIGLYCERIDES 60 <150 mg/dL [facility] HDL CHOLESTEROL 73 >40 mg/dL [facility] CHOL/HDL RATIO 3.41 <4.51 [facility] LDL CHOLESTEROL 164(H) <131 mg/dL [facility] PATIENT STATUS Fasting [facility] Blood specimen (specimen) BLOOD SPECIMEN / Unknown 03/25/2009 10:08 AM MANAGER INTERMEDIATE 03/25/2009 10:04 AM MANAGER INTERMEDIATE Sudha Knox CHEMISTRY [facility] [address] [place] [address] * XR MAMMO BILAT SCREEN FFDM (03/25/2009 9:55 AM MANAGER INTERMEDIATE) MAMMOGRAM ACR 2 Benign Finding Anatomical Region Laterality Modality BREASTS, Breast Left, Breast Right Bilateral Mammography 03/25/2009 9:55 AM MANAGER INTERMEDIATE Narrative 03/25/2009 3:14 PM MANAGER INTERMEDIATE Benign findings noted on mammogram. ??For complete [...] BONE DENSITY 2 SITES (02/18/2007 3:46 PM MANAGER INTERMEDIATE) Anatomical Region Laterality Modality Spine, HIPS, HIPL, HIPR Other 02/18/2007 3:46 PM MANAGER INTERMEDIATE Narrative 02/21/2007 2:53 PM MANAGER INTERMEDIATE Please see scanned document for results of this study. Procedure Note Sal Bergeron MD - 02/27/2007 Please see scanned document for results of this study. Sudha Knox DEXA from Last 3 Months or Most Recently Relevant to Health Maintenance Care Teams Electrical Intern Relationship Specialty Start Date End Date Veronica Krause MD [address] [place] [address] [phone] PCP - General Family Practice 04/19/16
--- NOTE | 2024-01-13 11:30 | CRLHL7_ITS ---
For Patients: As a result of the Century Cures Act, medical imaging exams and procedure reports are released immediately into your electronic medical record. You may view this report before your referring provider. If you have questions, please contact your health care provider. BILATERAL SCREENING MAMMOGRAM WITH COMPUTER-AIDED DETECTION AND TOMOSYNTHESIS TECHNIQUE: CC and MLO views were obtained. These mammographic images have been obtained using full-field digital technique. These mammographic images were interpreted with the benefit of computer-aided detection. Breast Tomosynthesis was used in this interpretation. COMPARISON FILM: 10/29/22, 08/28/21, 07/22/20. FINDINGS: The breasts are heterogeneously dense, which may obscure small masses. IMPRESSION: There is no radiographic evidence for malignancy. ASSESSMENT: BI-RADS Category 1: Negative RECOMMENDATION: Routine screening mammogram in 1 year. A lay language report of this examination will be provided to the patient. Sid Mayorga M.D. Diagnostic Radiologist [email or web address] SP/Dictated by: Sid Mayorga MD @ 01/15/2024 11:10:00 AM (Electronically Signed)
== END 2024-01-13 11:09 | disposition home or self-care (01) ==
LOC: MAMMO 11:09
PROVIDERS: PCP Family Medicine; Visit Provider Family Medicine
DX: Z12.31 Encounter for screening mammogram for malignant neoplasm of breast (principal); R92.333 Mammographic heterogeneous density, bilateral breasts
CPT/HCPCS: 77063; 77067

== ENCOUNTER 2024-10-08 08:17 | Outpatient (CLI) | payer MEDICARE, SELFPAY | END 2024-10-08 08:18 | disposition home or self-care (01) | LOC: NFLDREF 10-12 16:28 | PROVIDERS: PCP Family Medicine; Referring Provider Family Medicine; Visit Provider Family Medicine | DX: Z00.00 Encounter for general adult medical examination without abnormal findings (principal); E78.5 Hyperlipidemia, unspecified; R53.83 Other fatigue | CPT/HCPCS: 80053; 80061; 84443 ==

== ENCOUNTER 2025-01-12 07:12 | Outpatient (CLI) | payer MEDICARE, SELFPAY ==
--- NOTE | 2025-01-12 08:19 | P.ANES_ITS ---
Anesthesia Charges Start Date/Time Anesthesia Start Date: 01/12/25 Anesthesia Start Time: 07:46 Stop Date/Time Anesthesia Stop Date: 01/12/25 Anesthesia Stop Time: 08:18 Coding CPT Codes CPT Codes: LYNSEY LWR INTST NDMN NOS - 72103 ([id number]) P1 - NORMAL HEALTHY PATIENT, QK - MINGLE OPERATOR 2-4 CNCRNT ANES PROC, QX - MOBILITY ARCHITECT SVC W/ MED DIRECTION
--- NOTE | 2025-01-12 08:19 | W.ANESCHARGE ---
Anesthesia Charges Start Date/Time Anesthesia Start Date: 01/12/25 Anesthesia Start Time: 07:46 Stop Date/Time Anesthesia Stop Date: 01/12/25 Anesthesia Stop Time: 08:18 Coding CPT Codes CPT Codes: LYNSEY LWR INTST NDSD NOS - 31196 ([id number]) P1 - NORMAL HEALTHY PATIENT, QK - STONE UNLOADER 2-4 CNCRNT ANES PROC, QX - SENIOR RELIABILITY ENGINEER SVC W/ MED DIRECTION
--- NOTE | 2025-01-12 08:38 | P.ANES_ITS ---
Anesthesia Charges Start Date/Time Anesthesia Start Date: 01/12/25 Anesthesia Start Time: 07:46 Stop Date/Time Anesthesia Stop Date: 01/12/25 Anesthesia Stop Time: 08:18 Summary Extremes of Age - Over 70 or under 1: MDA Coding CPT Codes CPT Codes: LYNSEY LWR INTST NDSC NOS - 06808 ([id number]) P1 - NORMAL HEALTHY PATIENT, QK - WAREHOUSE PULLER 2-4 CNCRNT ANEEfra PROC, QX - CREDIT RISK ANALYTICS MANAGER SVC W/ MD MED DIRECTION Additional Codes: Summary - Extremes of Age - Over 70 or under 1: MDA ([id number])
--- NOTE | 2025-01-12 08:38 | W.ANESCHARGE ---
Anesthesia Charges Start Date/Time Anesthesia Start Date: 01/12/25 Anesthesia Start Time: 07:46 Stop Date/Time Anesthesia Stop Date: 01/12/25 Anesthesia Stop Time: 08:18 Summary Extremes of Age - Over 70 or under 1: MDA Coding CPT Codes CPT Codes: LYNSEY LWR INTST NDSC NOS - 54326 ([id number]) P1 - NORMAL HEALTHY PATIENT, QK - FLOOR RENOVATOR 2-4 CNCRNT ANEEfra PROC, QX - MOLDED GRID AND PARTS INSPECTOR SVC W/ MD MED DIRECTION Additional Codes: Summary - Extremes of Age - Over 70 or under 1: MDA ([id number])
== END 2025-01-12 07:13 | disposition home or self-care (01) ==
LOC: OP CLINIC 07:13
PROVIDERS: PCP Family Medicine; Visit Provider Surgery
DX: Z12.11 Encounter for screening for malignant neoplasm of colon (principal); D12.0 Benign neoplasm of cecum; K64.8 Other hemorrhoids; Z83.719 Family history of colon polyps, unspecified
CPT/HCPCS: 00811; 00812; 45385; 99100; J2704

== ENCOUNTER 2025-01-14 14:14 | Outpatient (CLI) | payer MEDICARE, SELFPAY ==
--- NOTE | 2025-01-14 14:40 | CRLHL7_ITS ---
For Patients: As a result of the Century Cures Act, medical imaging exams and procedure reports are released immediately into your electronic medical record. You may view this report before your referring provider. If you have questions, please contact your health care provider. INDICATION: BILATERAL SCREENING MAMMOGRAM, ASYMPTOMATIC 74 Y/O FEMALE COMPARISON: 01/13/2024, 10/29/2022, 08/28/2021 TECHNIQUE: Digital mammogram in CC and MLO projections including computer-aided detection (CAD) and tomosynthesis. BREAST COMPOSITION: There are scattered areas of fibroglandular density. FINDINGS: No suspicious findings. ASSESSMENT: BI-RADS 1 Negative RECOMMENDATION: Annual screening mammogram. A lay language report of this examination will be provided to the patient. Dictated by: Sid Mayorga MD @ 01/15/2025 11:16:01 (Electronically Signed)
== END 2025-01-14 14:15 | disposition home or self-care (01) ==
LOC: MAMMO 14:15
PROVIDERS: PCP Family Medicine; Visit Provider Family Medicine
DX: Z12.31 Encounter for screening mammogram for malignant neoplasm of breast (principal)
CPT/HCPCS: 77063; 77067